=== PATIENT | female | born 1945 | race Two or more races ===

== ENCOUNTER 2021-03-17 18:08 | Emergency (ER) | payer MEDICARE, OTHER ==
[~2021-03-17] VITALS: Ht 154.9 cm; Wt 47.6 kg
[~2021-03-17 18:08] MED LIST: ATEN50TA PO; ESTR1TAB5 PO; LISI30TA4 PO
[2021-03-17 18:51] VITALS: BP 138/70
== END 2021-03-17 22:14 | disposition home or self-care (01) ==
LOC: ER 18:09
DX: S05.11XA Contusion of eyeball and orbital tissues, right eye, initial encounter (principal); I10 Essential (primary) hypertension; E78.5 Hyperlipidemia, unspecified; Z90.710 Acquired absence of both cervix and uterus; Z88.0 Allergy status to penicillin; W19.XXXA Unspecified fall, initial encounter; Y93.89 Activity, other specified; Y92.89 Other specified places as the place of occurrence of the external cause; Y99.8 Other external cause status
CPT/HCPCS: 70450; 72125